=== PATIENT | female | born 2000 | race American Indian/Alaskan Native ===

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

== ENCOUNTER 2019-02-01 09:40 | Inpatient (IN) | payer MEDICAID ==
[2019-02-01] MEDS ORDERED: LACTATED RINGERS 1,000 ML IV SCH (11:00)
--- NOTE | 2019-02-01 12:54 | Ultrasound Report ---
OBSTETRIC ULTRASOUND with biophysical profile INDICATION: Maternal gestational hypertension COMPARISON: No prior relevant imaging studies are available for comparison. TECHNIQUE: Transabdominal imaging was performed. FINDINGS: Single viable intrauterine is identified. lie: vertex. Heart rate: 143 bpm. bladder, diaphragm, heart, stomach, kidneys, spine, and included intracranial structures are un remarkable. The umbilical cord is seen with a loop in the region of the neck. measurements are as follows: Biparietal diameter 9.1 cm, 37 weeks 0 days Head circumference 33.1 cm, 37 weeks 5 days Abdominal circumference 32.6 cm, 36 weeks 3 days Femur length 7.4 cm, 37 weeks 6 days Estimated heart rate at this time is 6 pounds, 13 ounces. Amniotic fluid index is essentially 0cm, decreased. No placental abnormalities are seen. Cervix is c losed measuring 3 cm. CONCLUSION: 1. Single viable intrauterine currently in vertex position with estimated birthweight at this time of 6 pounds, 13 ounces.] 2. There is virtually no amniotic fluid. 3. There appears to be looping of the umbilical cord around the neck. ULTRASOUND BIOPHYSICAL PROFILE INDICATION: assessment, KARUNA. COMPARISON: None available. FINDINGS: breathing movement = 2 Gross body movement = 2 tone = 2 Qualitative amniotic fluid volume = 0 Total biophysical score = 6/8 Amniotic fluid index is 0 cm. Presentation is Cephalic. heart rate is 143 beats per minute. IMPRESSION: 1. biophysical profile = 6/8. Amniotic fluid index is essentially 0. Signer Name: Dennis Timmons MD Signed: 02/01/2019 12:49 PM Workstation Name: [id number]
[2019-02-01] MEDS ORDERED: BRETHINE IVP PRN (13:25)
[2019-02-01] MEDS ORDERED: XYLOCAINE 2% INFILTRATI ONE (13:25)
[2019-02-01] MEDS ORDERED: MINERAL OIL PO PRN (13:25)
[2019-02-01] MEDS ORDERED: CERVIDIL VG ONE (13:25)
[2019-02-01] MEDS ORDERED: BRETHINE SUB-Q PRN (13:25)
[2019-02-01] MEDS ORDERED: PITOCin/NS 30 UNIT/500ML 30 UNITS/500 ML BAG IV SCH (14:00)
[2019-02-01] MEDS ORDERED: PITOCin/NS 20 UNIT/1000ML DRIP 20 UNITS/1,000 ML BAG IV SCH (14:00)
[2019-02-01 14:13] LABS: Hematocrit 33.7 % (30.3-42.9); Mean Corpuscular HGB Conc 33 % (30-34); Mean Corpuscular Volume 85 fl (79-97); Platelet Count 225 K/mm3 (140-440); Red Blood Count 3.97 M/mm3 (3.65-5.03); Red Cell Distribution Width 15.4 % (13.2-15.2)
--- NOTE | 2019-02-01 14:53 | History and Physical Report ---
History of Present Illness Date of examination: 02/01/19 Date of admission: 02/01/19 13:11 Chief complaint: Contractions History of present illness: IUP@39weeks, presents complaining of contractions, variable decelerations noted by RN, BPP 09/28 (-2fluid), KARUNA 0, she denies ROM. +fm Past History : 1 Term Births: 0 Premature Births: 0 Living Children: 0 Para: 0 Mult. Births: 0 Prev : 0 Prev. attempt? 0 Aborta: 0 Elect. Ab: 0 Spont. 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 of genital herpes: no Partner hx. of genital herpes: no Rash, Viral, or Febrile illness since last LMP? no Varicella/Chicken Pox Status: Immunized TB Risk: no Genetic History Congenital Heart Defect: Mom: no Dad: no Kellie Disease: Mom: no Dad: no Thalassemia Mom: no Dad: no Neural Tube Defect Mom: no Dad: no Down's Syndrome Mom: no Dad: no Cheikh-Sachs Mom: no Dad: no Sickle Cell Disease/Trait Mom: no Dad: no Hemophilia Mom: no Dad: no Muscular Dystrophy Mom: no Dad: no Cystic Fibrosis Mom: no Dad: no [place] Chorea Mom: no Dad: no Mental Retardation Mom: no Dad: no Fragile X Mom: no Dad: no Other Genetic/Chromosomal Disorder Mom: no Dad: no Child w/other defect Mom: no Dad: no Enviromental Exposures Enviromental Exposures Reviewed Xray Exposure: no Medication, drug, or alcohol use since LMP: no Chemical/Other Exposure: no Exposure to Cat Liter: no Hx of Parvovirus (Fifth Disease): no Occupational Exposure to Children: none Active Medications (reviewed today): None Current Allergies (reviewed today): No known allergies Past History - Obstetrical History Expected Date of Delivery: 02/08/19 Actual Gestation: 39 Week(s) 0 Day(s) : 1 Medications and Allergies Allergies Allergy/AdvReac Type Severity Reaction Status Date / Time No Known Allergies Allergy Verified 06/04/18 12:38 Home Medications Medication Instructions Recorded Confirmed Last Taken Type Ondansetron [Zofran Odt] 4 mg PO Q8HR PRN #15 tab.rapdis 06/11/18 Unknown Rx 21/Iron Fu/Folic Acid 1 each PO DAILY #30 tablet 06/11/18 Unknown Rx [ Complete Caplet] Active Meds: Active Medications Ephedrine Sulfate (Ephedrine Sulfate) 10 mg IV Q2M PRN PRN Reason: Hypotension Lactated Ringer's (Lactated Ringers) 1,000 mls @ 150 mls/hr IV DIRECT NIALL Last Admin: 02/01/19 11:33 Dose: 150 mls/hr Documented by: Oxytocin/Sodium Chloride (Pitocin/Ns 20 Unit/1000ml Drip) 20 units in 1,000 mls @ 125 mls/hr IV DIRECT NIALL Oxytocin/Sodium Chloride (Pitocin/Ns 30 Unit/500ml) 30 units in 500 mls @ 1 mls/hr IV TITR NIALL; Protocol Lactated Ringer's (Lactated Ringers) 1,000 mls @ 125 mls/hr IV DIRECT NIALL Mineral Oil (Mineral Oil) 30 ml PO QHS PRN PRN Reason: Constipation Terbutaline Sulfate (Brethine) 0.25 mg SUB-Q ONCE PRN PRN Reason: Hyperstimulation/Hypertonicity Terbutaline Sulfate (Brethine) 0.25 mg IVP ONCE PRN PRN Reason: Hyperstimulation/Hypertonicity Review of Systems All systems: negative - Vital Signs Vital signs: Vital Signs Pulse BP 86 127/89 02/01/19 10:17 02/01/19 10:17 Temp Pulse Resp BP Pulse Ox 103 H 134/92 99 02/01/19 14:46 02/01/19 14:36 02/01/19 14:46 - Physical Exam Breasts: Positive: deferred Lungs: Positive: Normal air movement Abdomen: Positive: normal appearance. Negative: tenderness Genitourinary (Female): Positive: normal external genitalia, normal perenium Vulva: both: normal Uterus: Positive: enlarged. Negative: tender Extremities: Positive: normal - Obstetrical FHR: category 1 Uterine Contraction Monitor Mode: External Cervical Dilatation: 2 Cervical Effacement Percentage: 30 station: -2 Uterine Contraction Pattern: Irregular Results Result Diagrams: 02/01/19 13:52 Abnormal lab results 02/01/19 Range/Units 13:52 RDW 15.4 H (13.2-15.2) % All other labs normal. Ultrasound: report reviewed Assessment and Plan - Patient Problems (1) 39 weeks gestation of Current Visit: Yes Status: Acute (2) Oligohydramnios in third trimester Current Visit: Yes Status: Acute Qualifiers: Fetus number: single or unspecified fetus Qualified Code(s): O41.03X0 - Oligohydramnios, third trimester, not applicable or unspecified Plan to address problem: Will start cervidil for now. Plan of care explained, questions answered, she agrees with plan of care
[2019-02-01] MEDS ORDERED: STADOL IV PRN (15:40)
[2019-02-01 17:04] LABS: Alanine Aminotransferase 12 units/L (7-56); Uric Acid 4.3 mg/dL (3.5-7.6)
[2019-02-01] MEDS ORDERED: ZOFRAN IV ONE (20:38)
[2019-02-01 22:02] LABS: Bilirubin,Urine NEG (Negative); Blood,Urine SM (Negative); Color,Urine Yellow (Yellow); Mucus,Urine FEW /HPF; Protein,Urine <15 mg/dL mg/dL (Negative); RBC,Urine < 1.0 /HPF (0.0-6.0); Urobilinogen,Urine < 2.0 mg/dL (<2.0)
[2019-02-02] MEDS: LACTATED RINGERS 1,000 ML IV SCH ×3 (01:14→04:14)
--- NOTE | 2019-02-02 01:41 | Anesthesia Consultation ---
Anesthesia Consult and Med Hx Date of service: 02/02/19 - Airway Anesthetic Teeth Evaluation: Good - Pulmonary Exam CTA: Yes - Cardiac Exam Cardiac Exam: RRR - Pre-Operative Health Status ASA Pre-Surgery Classification: ASA2, Emergency Proposed Anesthetic Plan: Epidural - Pulmonary Hx Asthma: No COPD: No Hx Pneumonia: No - Cardiovascular System Hx Hypertension: No - Central Nervous System Hx Seizures: No Hx Psychiatric Problems: No - Endocrine Hx Renal Disease: No Hx End Stage Renal Disease: No Hx Hypothyroidism: No Hx Hyperthyroidism: No - Hematic Hx Anemia: No Hx Sickle Cell Disease: No - Other Systems Hx Alcohol Use: No
[2019-02-02] MEDS ORDERED: NARCAN 2 MG/2 ML IV PRN (01:42)
[2019-02-02] MEDS ORDERED: fentaNYL-BUPIV 2 MCG/ML-0.125% 200 MCG/100 ML BAG EPIDURAL SCH (02:00)
--- NOTE | 2019-02-02 04:00 | Progress Note ---
Assessment and Plan - Patient Problems (1) 39 weeks gestation of Current Visit: Yes Status: Acute (2) Oligohydramnios in third trimester Current Visit: Yes Status: Acute Qualifiers: Fetus number: single or unspecified fetus Qualified Code(s): O41.03X0 - Oligohydramnios, third trimester, not applicable or unspecified Plan to address problem: Close observation Continue present care Subjective - Subjective Date of service: 02/02/19 Principal diagnosis: IUP@39 wga, oligohydramnios Interval history: IUP@39weeks, presents complaining of contractions, variable decelerations noted by RN, BPP 09/28 (-2fluid), KARUNA 0, she denies ROM. +fm Past History : 1 Term Births: 0 Premature Births: 0 Living Children: 0 Para: 0 Mult. Births: 0 Prev : 0 Prev. attempt? 0 Aborta: 0 Elect. Ab: 0 Spont. 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 of genital herpes: no Partner hx. of genital herpes: no Rash, Viral, or Febrile illness since last LMP? no Varicella/Chicken Pox Status: Immunized TB Risk: no Genetic History Congenital Heart Defect: Mom: no Dad: no Kellie Disease: Mom: no Dad: no Thalassemia Mom: no Dad: no Neural Tube Defect Mom: no Dad: no Down's Syndrome Mom: no Dad: no Cheikh-Sachs Mom: no Dad: no Sickle Cell Disease/Trait Mom: no Dad: no Hemophilia Mom: no Dad: no Muscular Dystrophy Mom: no Dad: no Cystic Fibrosis Mom: no Dad: no Scott Chorea Mom: no Dad: no Mental Retardation Mom: no Dad: no Fragile X Mom: no Dad: no Other Genetic/Chromosomal Disorder Mom: no Dad: no Child w/other defect Mom: no Dad: no Enviromental Exposures Enviromental Exposures Reviewed Xray Exposure: no Medication, drug, or alcohol use since LMP: no Chemical/Other Exposure: no Exposure to Cat Liter: no Hx of Parvovirus (Fifth Disease): no Occupational Exposure to Children: none Active Medications (reviewed today): None Current Allergies (reviewed today): No known allergies Patient reports: no new complaints Objective - Vital Signs Vital Signs: Vital Signs - 12hr 02/01/19 02/01/19 02/01/19 16:22 17:08 17:25 Temperature Pulse Rate 94 H 108 H 103 H Respiratory Rate Blood Pressure 123/77 128/82 O2 Sat by Pulse 99 Oximetry 02/01/19 02/01/19 02/01/19 17:30 17:35 17:40 Temperature Pulse Rate 99 H 96 H 101 H Respiratory Rate Blood Pressure O2 Sat by Pulse 100 100 100 Oximetry 02/01/19 02/01/19 02/01/19 17:45 17:50 17:53 Temperature Pulse Rate 98 H 96 H 87 Respiratory Rate Blood Pressure 128/88 O2 Sat by Pulse 100 100 Oximetry 02/01/19 02/01/19 02/01/19 17:55 18:00 18:05 Temperature Pulse Rate 97 H 107 H 100 H Respiratory Rate Blood Pressure O2 Sat by Pulse 100 100 100 Oximetry 02/01/19 02/01/19 02/01/19 18:10 18:15 18:20 Temperature Pulse Rate 100 H 103 H 96 H Respiratory Rate Blood Pressure O2 Sat by Pulse 100 100 100 Oximetry 02/01/19 02/01/19 02/01/19 18:25 18:30 18:35 Temperature Pulse Rate 89 93 H 103 H Respiratory Rate Blood Pressure O2 Sat by Pulse 100 100 100 Oximetry 02/01/19 02/01/19 02/01/19 18:37 18:40 18:45 Temperature Pulse Rate 100 H 97 H 88 Respiratory Rate Blood Pressure 142/87 142/66 O2 Sat by Pulse 100 100 Oximetry 02/01/19 02/01/19 02/01/19 18:50 18:55 19:00 Temperature Pulse Rate 86 90 95 H Respiratory Rate Blood Pressure O2 Sat by Pulse 100 100 100 Oximetry 02/01/19 02/01/19 02/01/19 19:05 19:10 19:15 Temperature Pulse Rate 102 H 95 H 102 H Respiratory Rate Blood Pressure O2 Sat by Pulse 100 100 100 Oximetry 02/01/19 02/01/19 02/01/19 19:20 19:22 19:25 Temperature Pulse Rate 107 H 92 H 92 H Respiratory Rate Blood Pressure 139/81 O2 Sat by Pulse 98 100 Oximetry 02/01/19 02/01/19 02/01/19 19:30 19:35 19:40 Temperature Pulse Rate 83 91 H 89 Respiratory Rate Blood Pressure 136/80 O2 Sat by Pulse 100 99 98 Oximetry 02/01/19 02/01/19 02/01/19 19:45 19:50 19:55 Temperature Pulse Rate 94 H 80 86 Respiratory Rate Blood Pressure O2 Sat by Pulse 98 98 98 Oximetry 02/01/19 02/01/19 02/01/19 19:59 20:00 20:05 Temperature 98.8 F Pulse Rate 90 84 Respiratory 18 Rate Blood Pressure O2 Sat by Pulse 98 98 Oximetry 02/01/19 02/01/19 02/01/19 20:07 20:10 20:15 Temperature Pulse Rate 94 H 95 H 102 H Respiratory Rate Blood Pressure 120/75 O2 Sat by Pulse 98 99 Oximetry 02/01/19 02/01/19 02/01/19 20:20 20:25 20:30 Temperature Pulse Rate 99 H 94 H 95 H Respiratory Rate Blood Pressure O2 Sat by Pulse 98 99 98 Oximetry 02/01/19 02/01/19 02/01/19 20:35 20:40 20:45 Temperature Pulse Rate 99 H 99 H 94 H Respiratory Rate Blood Pressure O2 Sat by Pulse 99 99 98 Oximetry 02/01/19 02/01/19 02/01/19 20:50 20:52 20:55 Temperature Pulse Rate 92 H 91 H 99 H Respiratory Rate Blood Pressure 118/62 O2 Sat by Pulse 98 99 Oximetry 02/01/19 02/01/19 02/01/19 21:00 21:05 21:10 Temperature Pulse Rate 92 H 95 H 95 H Respiratory Rate Blood Pressure O2 Sat by Pulse 99 98 98 Oximetry 02/01/19 02/01/19 02/01/19 21:15 21:20 21:25 Temperature Pulse Rate 98 H 99 H 107 H Respiratory Rate Blood Pressure O2 Sat by Pulse 99 99 99 Oximetry 1002/01/19 02/01/19 21:36 21:39 21:41 Temperature Pulse Rate 108 H 100 H 94 H Respiratory Rate Blood Pressure 152/81 O2 Sat by Pulse 100 98 Oximetry 02/01/19 02/01/19 02/01/19 21:46 21:51 21:56 Temperature Pulse Rate 96 H 85 100 H Respiratory Rate Blood Pressure O2 Sat by Pulse 98 98 98 Oximetry 02/01/19 02/01/19 02/01/19 22:01 22:06 22:11 Temperature Pulse Rate 93 H 86 92 H Respiratory Rate Blood Pressure O2 Sat by Pulse 98 99 99 Oximetry 02/01/19 02/01/19 02/01/19 22:16 22:21 22:23 Temperature Pulse Rate 88 102 H 100 H Respiratory Rate Blood Pressure 150/66 O2 Sat by Pulse 99 100 Oximetry 02/01/19 02/01/19 02/01/19 22:26 22:31 22:36 Temperature Pulse Rate 91 H 96 H 86 Respiratory Rate Blood Pressure O2 Sat by Pulse 98 99 98 Oximetry 02/01/19 02/01/19 02/01/19 22:41 22:46 22:51 Temperature Pulse Rate 93 H 95 H 89 Respiratory Rate Blood Pressure O2 Sat by Pulse 98 99 98 Oximetry 02/01/19 02/01/19 02/01/19 22:56 23:01 23:06 Temperature Pulse Rate 89 111 H 111 H Respiratory Rate Blood Pressure O2 Sat by Pulse 98 99 99 Oximetry 02/01/19 02/01/19 02/01/19 23:11 23:16 23:21 Temperature Pulse Rate 93 H 98 H 95 H Respiratory Rate Blood Pressure O2 Sat by Pulse 98 97 99 Oximetry 02/01/19 02/01/19 02/01/19 23:25 23:26 23:31 Temperature Pulse Rate 100 H 102 H 102 H Respiratory Rate Blood Pressure 124/67 O2 Sat by Pulse 98 99 Oximetry 02/01/19 02/01/19 02/01/19 23:36 23:41 23:46 Temperature Pulse Rate 101 H 102 H 101 H Respiratory Rate Blood Pressure O2 Sat by Pulse 99 99 99 Oximetry 02/01/19 02/01/19 02/02/19 23:51 23:56 00:01 Temperature Pulse Rate 93 H 109 H 100 H Respiratory Rate Blood Pressure O2 Sat by Pulse 99 98 99 Oximetry 02/02/19 02/02/19 02/02/19 00:06 00:11 00:16 Temperature Pulse Rate 115 H 112 H 92 H Respiratory Rate Blood Pressure O2 Sat by Pulse 97 97 98 Oximetry 02/02/19 02/02/19 02/02/19 00:21 00:24 00:26 Temperature Pulse Rate 111 H 100 H 102 H Respiratory Rate Blood Pressure 124/71 O2 Sat by Pulse 97 99 Oximetry 02/02/19 02/02/19 02/02/19 00:31 00:36 00:41 Temperature Pulse Rate 102 H 88 100 H Respiratory Rate Blood Pressure O2 Sat by Pulse 99 97 98 Oximetry 02/02/19 02/02/19 02/02/19 00:43 00:48 00:52 Temperature Pulse Rate 33 L 112 H Respiratory Rate Blood Pressure O2 Sat by Pulse 88 86 90 Oximetry 02/02/19 02/02/19 02/02/19 00:54 00:57 01:02 Temperature Pulse Rate 97 H 96 H Respiratory Rate Blood Pressure O2 Sat by Pulse 88 98 100 Oximetry 02/02/19 02/02/19 02/02/19 01:07 01:08 01:12 Temperature Pulse Rate 100 H 102 H 111 H Respiratory Rate Blood Pressure O2 Sat by Pulse 97 92 95 Oximetry 02/02/19 02/02/19 02/02/19 01:15 01:17 01:22 Temperature Pulse Rate 110 H 113 H 111 H Respiratory Rate Blood Pressure O2 Sat by Pulse 94 95 96 Oximetry 02/02/19 02/02/19 02/02/19 01:24 01:27 01:32 Temperature Pulse Rate 111 H 111 H 116 H Respiratory Rate Blood Pressure 128/77 O2 Sat by Pulse 93 96 96 Oximetry 02/02/19 02/02/19 02/02/19 01:37 01:42 01:47 Temperature Pulse Rate 113 H 110 H 121 H Respiratory Rate Blood Pressure O2 Sat by Pulse 97 97 98 Oximetry 02/02/19 02/02/19 02/02/19 01:52 01:56 01:57 Temperature Pulse Rate 108 H 111 H 110 H Respiratory Rate Blood Pressure 129/85 O2 Sat by Pulse 97 98 Oximetry 02/02/19 02/02/19 02/02/19 01:59 02:02 02:05 Temperature Pulse Rate 118 H 119 H 114 H Respiratory Rate Blood Pressure 132/88 137/90 134/79 O2 Sat by Pulse 98 Oximetry 02/02/19 02/02/19 02/02/19 02:07 02:08 02:11 Temperature Pulse Rate 111 H 116 H 107 H Respiratory Rate Blood Pressure 132/86 131/82 O2 Sat by Pulse 98 Oximetry 02/02/19 02/02/19 02/02/19 02:12 02:14 02:15 Temperature 98.2 F Pulse Rate 105 H 113 H Respiratory 18 Rate Blood Pressure 131/78 O2 Sat by Pulse 98 Oximetry 02/02/19 02/02/19 02/02/19 02:17 02:20 02:22 Temperature Pulse Rate 103 H 96 H 98 H Respiratory Rate Blood Pressure 135/82 137/86 O2 Sat by Pulse 98 96 Oximetry 02/02/19 02/02/19 02/02/19 02:27 02:31 02:32 Temperature Pulse Rate 89 97 H 92 H Respiratory Rate Blood Pressure 131/84 129/83 O2 Sat by Pulse 96 98 Oximetry 02/02/19 02/02/19 02/02/19 02:37 02:41 02:42 Temperature Pulse Rate 93 H 96 H 96 H Respiratory Rate Blood Pressure 132/84 O2 Sat by Pulse 98 97 Oximetry 02/02/19 02/02/19 02/02/19 02:47 02:52 02:57 Temperature Pulse Rate 100 H 103 H 100 H Respiratory Rate Blood Pressure O2 Sat by Pulse 99 99 98 Oximetry 02/02/19 02/02/19 02/02/19 03:02 03:07 03:12 Temperature Pulse Rate 107 H 95 H 94 H Respiratory Rate Blood Pressure O2 Sat by Pulse 98 98 98 Oximetry 02/02/19 02/02/19 02/02/19 03:17 03:22 03:27 Temperature Pulse Rate 95 H 98 H 95 H Respiratory Rate Blood Pressure 132/96 O2 Sat by Pulse 98 99 98 Oximetry 02/02/19 02/02/19 02/02/19 03:32 03:37 03:38 Temperature Pulse Rate 96 H 104 H Respiratory Rate Blood Pressure 129/77 O2 Sat by Pulse 100 99 Oximetry 02/02/19 02/02/19 02/02/19 03:42 03:47 03:52 Temperature Pulse Rate 96 H 100 H 97 H Respiratory Rate Blood Pressure 138/90 O2 Sat by Pulse 100 100 100 Oximetry 02/02/19 03:57 Temperature Pulse Rate 101 H Respiratory Rate Blood Pressure O2 Sat by Pulse 100 Oximetry - Exam Cardiovascular: Regular rate Lungs: Normal air movement Abdomen: Present: soft. Absent: tenderness Vulva: both: normal Uterus: Present: fundal height above umbilicus. Absent: tenderness FHR: category 2 FHR comments: ISE and IUPC placed w/o difficulty, scant clear fluid noted in IUPC Cervical Dilatation: 5 Cervical Effacement Percentage: 60 ( cervidil removed 0115 by RN) station: -1 Uterine Contraction Frequency (min): 4 Uterine Contraction Pattern: Regular Extremities: normal - Labs Labs: Abnormal Labs 02/01/19 02/01/19 13:52 15:47 RDW 15.4 H Creatinine 0.5 L Lactate Dehydrogenase 191 H Laboratory Results - last 24 hr 02/01/19 02/01/19 02/01/19 13:52 13:52 15:47 WBC 6.7 RBC 3.97 Hgb 11.0 Hct 33.7 MCV 85 MCH 28 MCHC 33 RDW 15.4 H Plt Count 225 Creatinine 0.5 L Estimated GFR > 60 Uric Acid 4.3 AST 14 ALT 12 Lactate Dehydrogenase 191 H Urine Color Urine Turbidity Urine pH Ur Specific [place] Urine Protein Urine Glucose (UA) Urine Ketones Urine Blood Urine Nitrite Urine Bilirubin Urine Urobilinogen Ur Leukocyte Esterase Urine WBC (Auto) Urine RBC (Auto) U Epithel Cells (Auto) Urine Mucus Blood Type O POSITIVE Antibody Screen Negative 02/01/19 21:40 WBC RBC Hgb Hct MCV MCH MCHC RDW Plt Count Creatinine Estimated GFR Uric Acid AST ALT Lactate Dehydrogenase Urine Color Yellow Urine Turbidity Slightly-cloudy Urine pH 7.0 Ur Specific [place] 1.016 Urine Protein <15 mg/dl Urine Glucose (UA) Neg Urine Ketones 20 Urine Blood Sm Urine Nitrite Neg Urine Bilirubin Neg Urine Urobilinogen < 2.0 Ur Leukocyte Esterase Sm Urine WBC (Auto) 1.0 Urine RBC (Auto) < 1.0 U Epithel Cells (Auto) 10.0 Urine Mucus Few Blood Type Antibody Screen
[2019-02-02] MEDS ORDERED: NACL 0.9% 1000 ML 1,000 ML ONE (04:20)
--- NOTE | 2019-02-02 07:23 | Progress Note ---
Assessment and Plan - Patient Problems (1) 39 weeks gestation of Current Visit: Yes Status: Acute Plan to address problem: Overall reassuring fht's. Continue amnioinfusion, O2, now on extreme right side with knee in stirrup. Findings and plan of care discussed with patient, she voiced understanding (2) Oligohydramnios in third trimester Current Visit: Yes Status: Acute Qualifiers: Fetus number: single or unspecified fetus Qualified Code(s): O41.03X0 - Oligohydramnios, third trimester, not applicable or unspecified Subjective - Subjective Date of service: 02/02/19 Principal diagnosis: IUP@39 wga, oligohydramnios Interval history: IUP@39weeks, presents complaining of contractions, variable decelerations noted by RN, BPP 09/28 (-2fluid), KARUNA 0, she denies ROM. +fm Past History : 1 Term Births: 0 Premature Births: 0 Living Children: 0 Para: 0 Mult. Births: 0 Prev : 0 Prev. attempt? 0 Aborta: 0 Elect. Ab: 0 Spont. 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 of genital herpes: no Partner hx. of genital herpes: no Rash, Viral, or Febrile illness since last LMP? no Varicella/Chicken Pox Status: Immunized TB Risk: no Genetic History Congenital Heart Defect: Mom: no Dad: no Kellie Disease: Mom: no Dad: no Thalassemia Mom: no Dad: no Neural Tube Defect Mom: no Dad: no Down's Syndrome Mom: no Dad: no Cheikh-Sachs Mom: no Dad: no Sickle Cell Disease/Trait Mom: no Dad: no Hemophilia Mom: no Dad: no Muscular Dystrophy Mom: no Dad: no Cystic Fibrosis Mom: no Dad: no [place] Chorea Mom: no Dad: no Mental Retardation Mom: no Dad: no Fragile X Mom: no Dad: no Other Genetic/Chromosomal Disorder Mom: no Dad: no Child w/other defect Mom: no Dad: no Enviromental Exposures Enviromental Exposures Reviewed Xray Exposure: no Medication, drug, or alcohol use since LMP: no Chemical/Other Exposure: no Exposure to Cat Liter: no Hx of Parvovirus (Fifth Disease): no Occupational Exposure to Children: none Active Medications (reviewed today): None Current Allergies (reviewed today): No known allergies Patient reports: no new complaints Objective - Vital Signs Vital Signs: Vital Signs - 12hr 02/01/19 02/01/19 02/01/19 19:20 19:22 19:25 Temperature Pulse Rate 107 H 92 H 92 H Respiratory Rate Blood Pressure 139/81 O2 Sat by Pulse 98 100 Oximetry 02/01/19 02/01/19 02/01/19 19:30 19:35 19:40 Temperature Pulse Rate 83 91 H 89 Respiratory Rate Blood Pressure 136/80 O2 Sat by Pulse 100 99 98 Oximetry 02/01/19 02/01/19 02/01/19 19:45 19:50 19:55 Temperature Pulse Rate 94 H 80 86 Respiratory Rate Blood Pressure O2 Sat by Pulse 98 98 98 Oximetry 02/01/19 02/01/19 02/01/19 19:59 20:00 20:05 Temperature 98.8 F Pulse Rate 90 84 Respiratory 18 Rate Blood Pressure O2 Sat by Pulse 98 98 Oximetry 02/01/19 02/01/19 02/01/19 20:07 20:10 20:15 Temperature Pulse Rate 94 H 95 H 102 H Respiratory Rate Blood Pressure 120/75 O2 Sat by Pulse 98 99 Oximetry 02/01/19 02/01/19 02/01/19 20:20 20:25 20:30 Temperature Pulse Rate 99 H 94 H 95 H Respiratory Rate Blood Pressure O2 Sat by Pulse 98 99 98 Oximetry 02/01/19 02/01/19 02/01/19 20:35 20:40 20:45 Temperature Pulse Rate 99 H 99 H 94 H Respiratory Rate Blood Pressure O2 Sat by Pulse 99 99 98 Oximetry 02/01/19 02/01/19 02/01/19 20:50 20:52 20:55 Temperature Pulse Rate 92 H 91 H 99 H Respiratory Rate Blood Pressure 118/62 O2 Sat by Pulse 98 99 Oximetry 02/01/19 02/01/19 02/01/19 21:00 21:05 21:10 Temperature Pulse Rate 92 H 95 H 95 H Respiratory Rate Blood Pressure O2 Sat by Pulse 99 98 98 Oximetry 02/01/19 02/01/19 02/01/19 21:15 21:20 21:25 Temperature Pulse Rate 98 H 99 H 107 H Respiratory Rate Blood Pressure O2 Sat by Pulse 99 99 99 Oximetry 02/01/19 02/01/19 02/01/19 21:36 21:39 21:41 Temperature Pulse Rate 108 H 100 H 94 H Respiratory Rate Blood Pressure 152/81 O2 Sat by Pulse 100 98 Oximetry 02/01/19 02/01/19 02/01/19 21:46 21:51 21:56 Temperature Pulse Rate 96 H 85 100 H Respiratory Rate Blood Pressure O2 Sat by Pulse 98 98 98 Oximetry 02/01/19 02/01/19 02/01/19 22:01 22:06 22:11 Temperature Pulse Rate 93 H 86 92 H Respiratory Rate Blood Pressure O2 Sat by Pulse 98 99 99 Oximetry 02/01/19 02/01/19 02/01/19 22:16 22:21 22:23 Temperature Pulse Rate 88 102 H 100 H Respiratory Rate Blood Pressure 150/66 O2 Sat by Pulse 99 100 Oximetry 02/01/19 02/01/19 02/01/19 22:26 22:31 22:36 Temperature Pulse Rate 91 H 96 H 86 Respiratory Rate Blood Pressure O2 Sat by Pulse 98 99 98 Oximetry 02/01/19 02/01/19 02/01/19 22:41 22:46 22:51 Temperature Pulse Rate 93 H 95 H 89 Respiratory Rate Blood Pressure O2 Sat by Pulse 98 99 98 Oximetry 02/01/19 02/01/19 02/01/19 22:56 23:01 23:06 Temperature Pulse Rate 89 111 H 111 H Respiratory Rate Blood Pressure O2 Sat by Pulse 98 99 99 Oximetry 02/01/19 02/01/19 02/01/19 23:11 23:16 23:21 Temperature Pulse Rate 93 H 98 H 95 H Respiratory Rate Blood Pressure O2 Sat by Pulse 98 97 99 Oximetry 02/01/19 02/01/19 02/01/19 23:25 23:26 23:31 Temperature Pulse Rate 100 H 102 H 102 H Respiratory Rate Blood Pressure 124/67 O2 Sat by Pulse 98 99 Oximetry 02/01/19 02/01/19 02/01/19 23:36 23:41 23:46 Temperature Pulse Rate 101 H 102 H 101 H Respiratory Rate Blood Pressure O2 Sat by Pulse 99 99 99 Oximetry 02/01/19 02/01/19 02/02/19 23:51 23:56 00:01 Temperature Pulse Rate 93 H 109 H 100 H Respiratory Rate Blood Pressure O2 Sat by Pulse 99 98 99 Oximetry 02/02/19 02/02/19 02/02/19 00:06 00:11 00:16 Temperature Pulse Rate 115 H 112 H 92 H Respiratory Rate Blood Pressure O2 Sat by Pulse 97 97 98 Oximetry 02/02/19 02/02/19 02/02/19 00:21 00:24 00:26 Temperature Pulse Rate 111 H 100 H 102 H Respiratory Rate Blood Pressure 124/71 O2 Sat by Pulse 97 99 Oximetry 02/02/19 02/02/19 02/02/19 00:31 00:36 00:41 Temperature Pulse Rate 102 H 88 100 H Respiratory Rate Blood Pressure O2 Sat by Pulse 99 97 98 Oximetry 02/02/19 02/02/19 02/02/19 00:43 00:48 00:52 Temperature Pulse Rate 33 L 112 H Respiratory Rate Blood Pressure O2 Sat by Pulse 88 86 90 Oximetry 02/02/19 02/02/19 02/02/19 00:54 00:57 01:02 Temperature Pulse Rate 97 H 96 H Respiratory Rate Blood Pressure O2 Sat by Pulse 88 98 100 Oximetry 02/02/19 02/02/19 02/02/19 01:07 01:08 01:12 Temperature Pulse Rate 100 H 102 H 111 H Respiratory Rate Blood Pressure O2 Sat by Pulse 97 92 95 Oximetry 02/02/19 02/02/19 02/02/19 01:15 01:17 01:22 Temperature Pulse Rate 110 H 113 H 111 H Respiratory Rate Blood Pressure O2 Sat by Pulse 94 95 96 Oximetry 02/02/19 02/02/19 02/02/19 01:24 01:27 01:32 Temperature Pulse Rate 111 H 111 H 116 H Respiratory Rate Blood Pressure 128/77 O2 Sat by Pulse 93 96 96 Oximetry 02/02/19 02/02/19 02/02/19 01:37 01:42 01:47 Temperature Pulse Rate 113 H 110 H 121 H Respiratory Rate Blood Pressure O2 Sat by Pulse 97 97 98 Oximetry 02/02/19 02/02/19 02/02/19 01:52 01:56 01:57 Temperature Pulse Rate 108 H 111 H 110 H Respiratory Rate Blood Pressure 129/85 O2 Sat by Pulse 97 98 Oximetry 02/02/19 02/02/19 02/02/19 01:59 02:02 02:05 Temperature Pulse Rate 118 H 119 H 114 H Respiratory Rate Blood Pressure 132/88 137/90 134/79 O2 Sat by Pulse 98 Oximetry 02/02/19 02/02/19 02/02/19 02:07 02:08 02:11 Temperature Pulse Rate 111 H 116 H 107 H Respiratory Rate Blood Pressure 132/86 131/82 O2 Sat by Pulse 98 Oximetry 02/02/19 02/02/19 02/02/19 02:12 02:14 02:15 Temperature 98.2 F Pulse Rate 105 H 113 H Respiratory 18 Rate Blood Pressure 131/78 O2 Sat by Pulse 98 Oximetry 02/02/19 02/02/19 02/02/19 02:17 02:20 02:22 Temperature Pulse Rate 103 H 96 H 98 H Respiratory Rate Blood Pressure 135/82 137/86 O2 Sat by Pulse 98 96 Oximetry 02/02/19 02/02/19 02/02/19 02:27 02:31 02:32 Temperature Pulse Rate 89 97 H 92 H Respiratory Rate Blood Pressure 131/84 129/83 O2 Sat by Pulse 96 98 Oximetry 02/02/19 02/02/19 02/02/19 02:37 02:41 02:42 Temperature Pulse Rate 93 H 96 H 96 H Respiratory Rate Blood Pressure 132/84 O2 Sat by Pulse 98 97 Oximetry 02/02/19 02/02/19 02/02/19 02:47 02:52 02:57 Temperature Pulse Rate 100 H 103 H 100 H Respiratory Rate Blood Pressure O2 Sat by Pulse 99 99 98 Oximetry 02/02/19 02/02/19 02/02/19 03:02 03:07 03:12 Temperature Pulse Rate 107 H 95 H 94 H Respiratory Rate Blood Pressure O2 Sat by Pulse 98 98 98 Oximetry 02/02/19 02/02/19 02/02/19 03:17 03:22 03:27 Temperature Pulse Rate 95 H 98 H 95 H Respiratory Rate Blood Pressure 132/96 O2 Sat by Pulse 98 99 98 Oximetry 02/02/19 02/02/19 02/02/19 03:32 03:37 03:38 Temperature Pulse Rate 96 H 104 H Respiratory Rate Blood Pressure 129/77 O2 Sat by Pulse 100 99 Oximetry 02/02/19 02/02/19 02/02/19 03:42 03:47 03:52 Temperature Pulse Rate 96 H 100 H 97 H Respiratory Rate Blood Pressure 138/90 O2 Sat by Pulse 100 100 100 Oximetry 02/02/19 02/02/19 02/02/19 03:57 04:02 04:07 Temperature Pulse Rate 101 H 91 H 82 Respiratory Rate Blood Pressure O2 Sat by Pulse 100 100 100 Oximetry 02/02/19 02/02/19 02/02/19 04:12 04:17 04:21 Temperature Pulse Rate 110 H 100 H 97 H Respiratory Rate Blood Pressure 133/85 O2 Sat by Pulse 100 100 Oximetry 02/02/19 02/02/19 02/02/19 04:22 04:27 04:32 Temperature Pulse Rate 91 H 96 H 94 H Respiratory Rate Blood Pressure O2 Sat by Pulse 100 100 100 Oximetry 02/02/19 02/02/19 02/02/19 04:37 04:42 04:47 Temperature Pulse Rate 93 H 92 H 93 H Respiratory Rate Blood Pressure O2 Sat by Pulse 100 100 100 Oximetry 02/02/19 02/02/19 02/02/19 04:51 04:52 04:57 Temperature Pulse Rate 95 H 91 H 94 H Respiratory Rate Blood Pressure 132/81 O2 Sat by Pulse 100 100 Oximetry 02/02/19 02/02/19 02/02/19 05:02 05:07 05:12 Temperature Pulse Rate 97 H 95 H 98 H Respiratory Rate Blood Pressure O2 Sat by Pulse 100 100 100 Oximetry 02/02/19 02/02/19 02/02/19 05:17 05:21 05:22 Temperature Pulse Rate 104 H 98 H 93 H Respiratory Rate Blood Pressure 125/79 O2 Sat by Pulse 100 100 Oximetry 02/02/19 02/02/19 02/02/19 05:27 05:32 05:37 Temperature Pulse Rate 99 H 94 H 102 H Respiratory Rate Blood Pressure O2 Sat by Pulse 100 100 100 Oximetry 02/02/19 02/02/19 02/02/19 05:42 05:47 05:52 Temperature Pulse Rate 103 H 98 H 103 H Respiratory Rate Blood Pressure 136/84 O2 Sat by Pulse 100 100 99 Oximetry 02/02/19 02/02/19 02/02/19 05:57 06:02 06:07 Temperature Pulse Rate 100 H 104 H 109 H Respiratory Rate Blood Pressure O2 Sat by Pulse 100 100 100 Oximetry 02/02/19 02/02/19 02/02/19 06:12 06:17 06:22 Temperature Pulse Rate 108 H 103 H 108 H Respiratory Rate Blood Pressure 136/89 O2 Sat by Pulse 100 100 100 Oximetry 02/02/19 02/02/19 02/02/19 06:27 06:32 06:37 Temperature Pulse Rate 99 H 98 H 96 H Respiratory Rate Blood Pressure O2 Sat by Pulse 100 100 100 Oximetry 02/02/19 02/02/19 02/02/19 06:42 06:47 06:52 Temperature Pulse Rate 97 H 96 H 101 H Respiratory Rate Blood Pressure 138/87 O2 Sat by Pulse 100 100 100 Oximetry 02/02/19 02/02/19 02/02/19 06:57 07:02 07:07 Temperature Pulse Rate 100 H 100 H 101 H Respiratory Rate Blood Pressure O2 Sat by Pulse 100 100 100 Oximetry 02/02/19 07:12 Temperature Pulse Rate 105 H Respiratory Rate Blood Pressure O2 Sat by Pulse 100 Oximetry - Exam Breasts: deferred Lungs: Normal air movement Abdomen: Absent: tenderness Vulva: both: normal Uterus: Present: fundal height below umbilicus. Absent: tenderness FHR: category 2 (good variability, +acceleration with scalp stimulation) Cervical Dilatation: 7 Cervical Effacement Percentage: 60 station: -1 Uterine Contraction Frequency (min): 3-4 Uterine Contraction Pattern: Regular Extremities: normal - Labs Labs: Abnormal Labs 02/01/19 02/01/19 13:52 15:47 RDW 15.4 H Creatinine 0.5 L Lactate Dehydrogenase 191 H Laboratory Results - last 24 hr 02/01/19 02/01/19 02/01/19 13:52 13:52 15:47 WBC 6.7 RBC 3.97 Hgb 11.0 Hct 33.7 MCV 85 MCH 28 MCHC 33 RDW 15.4 H Plt Count 225 Creatinine 0.5 L Estimated GFR > 60 Uric Acid 4.3 AST 14 ALT 12 Lactate Dehydrogenase 191 H Urine Color Urine Turbidity Urine pH Ur Specific [place] Urine Protein Urine Glucose (UA) Urine Ketones Urine Blood Urine Nitrite Urine Bilirubin Urine Urobilinogen Ur Leukocyte Esterase Urine WBC (Auto) Urine RBC (Auto) U Epithel Cells (Auto) Urine Mucus Blood Type O POSITIVE Antibody Screen Negative 02/01/19 21:40 WBC RBC Hgb Hct MCV MCH MCHC RDW Plt Count Creatinine Estimated GFR Uric Acid AST ALT Lactate Dehydrogenase Urine Color Yellow Urine Turbidity Slightly-cloudy Urine pH 7.0 Ur Specific [place] 1.016 Urine Protein <15 mg/dl Urine Glucose (UA) Neg Urine Ketones 20 Urine Blood Sm Urine Nitrite Neg Urine Bilirubin Neg Urine Urobilinogen < 2.0 Ur Leukocyte Esterase Sm Urine WBC (Auto) 1.0 Urine RBC (Auto) < 1.0 U Epithel Cells (Auto) 10.0 Urine Mucus Few Blood Type Antibody Screen
--- NOTE | 2019-02-02 08:51 | Progress Note ---
Assessment and Plan - Patient Problems (1) 39 weeks gestation of Current Visit: Yes Status: Acute Plan to address problem: Anticipate vaginal delivery (2) Oligohydramnios in third trimester Current Visit: Yes Status: Acute Qualifiers: Fetus number: single or unspecified fetus Qualified Code(s): O41.03X0 - Oligohydramnios, third trimester, not applicable or unspecified Subjective - Subjective Date of service: 02/02/19 Principal diagnosis: IUP@39 wga, oligohydramnios Interval history: IUP@39weeks, presents complaining of contractions, variable decelerations noted by RN, BPP 09/28 (-2fluid), KARUNA 0, she denies ROM. +fm Past History : 1 Term Births: 0 Premature Births: 0 Living Children: 0 Para: 0 Mult. Births: 0 Prev : 0 Prev. attempt? 0 Aborta: 0 Elect. Ab: 0 Spont. 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 of genital herpes: no Partner hx. of genital herpes: no Rash, Viral, or Febrile illness since last LMP? no Varicella/Chicken Pox Status: Immunized TB Risk: no Genetic History Congenital Heart Defect: Mom: no Dad: no Kellie Disease: Mom: no Dad: no Thalassemia Mom: no Dad: no Neural Tube Defect Mom: no Dad: no Down's Syndrome Mom: no Dad: no Cheikh-Sachs Mom: no Dad: no Sickle Cell Disease/Trait Mom: no Dad: no Hemophilia Mom: no Dad: no Muscular Dystrophy Mom: no Dad: no Cystic Fibrosis Mom: no Dad: no Isaiah Chorea Mom: no Dad: no Mental Retardation Mom: no Dad: no Fragile X Mom: no Dad: no Other Genetic/Chromosomal Disorder Mom: no Dad: no Child w/other defect Mom: no Dad: no Enviromental Exposures Enviromental Exposures Reviewed Xray Exposure: no Medication, drug, or alcohol use since LMP: no Chemical/Other Exposure: no Exposure to Cat Liter: no Hx of Parvovirus (Fifth Disease): no Occupational Exposure to Children: none Active Medications (reviewed today): None Current Allergies (reviewed today): No known allergies Patient reports: contractions (vaginal pain), no new complaints Objective - Vital Signs Vital Signs: Vital Signs - 12hr 02/01/19 02/01/19 02/01/19 20:50 20:52 20:55 Temperature Pulse Rate 92 H 91 H 99 H Respiratory Rate Blood Pressure 118/62 O2 Sat by Pulse 98 99 Oximetry 02/01/19 02/01/19 02/01/19 21:00 21:05 21:10 Temperature Pulse Rate 92 H 95 H 95 H Respiratory Rate Blood Pressure O2 Sat by Pulse 99 98 98 Oximetry 02/01/19 02/01/19 02/01/19 21:15 21:20 21:25 Temperature Pulse Rate 98 H 99 H 107 H Respiratory Rate Blood Pressure O2 Sat by Pulse 99 99 99 Oximetry 02/01/19 02/01/19 02/01/19 21:36 21:39 21:41 Temperature Pulse Rate 108 H 100 H 94 H Respiratory Rate Blood Pressure 152/81 O2 Sat by Pulse 100 98 Oximetry 02/01/19 02/01/19 02/01/19 21:46 21:51 21:56 Temperature Pulse Rate 96 H 85 100 H Respiratory Rate Blood Pressure O2 Sat by Pulse 98 98 98 Oximetry 02/01/19 02/01/19 02/01/19 22:01 22:06 22:11 Temperature Pulse Rate 93 H 86 92 H Respiratory Rate Blood Pressure O2 Sat by Pulse 98 99 99 Oximetry 02/01/19 02/01/19 02/01/19 22:16 22:21 22:23 Temperature Pulse Rate 88 102 H 100 H Respiratory Rate Blood Pressure 150/66 O2 Sat by Pulse 99 100 Oximetry 02/01/19 02/01/19 02/01/19 22:26 22:31 22:36 Temperature Pulse Rate 91 H 96 H 86 Respiratory Rate Blood Pressure O2 Sat by Pulse 98 99 98 Oximetry 02/01/19 02/01/19 02/01/19 22:41 22:46 22:51 Temperature Pulse Rate 93 H 95 H 89 Respiratory Rate Blood Pressure O2 Sat by Pulse 98 99 98 Oximetry 02/01/19 02/01/19 02/01/19 22:56 23:01 23:06 Temperature Pulse Rate 89 111 H 111 H Respiratory Rate Blood Pressure O2 Sat by Pulse 98 99 99 Oximetry 02/01/19 02/01/19 02/01/19 23:11 23:16 23:21 Temperature Pulse Rate 93 H 98 H 95 H Respiratory Rate Blood Pressure O2 Sat by Pulse 98 97 99 Oximetry 02/01/19 02/01/19 02/01/19 23:25 23:26 23:31 Temperature Pulse Rate 100 H 102 H 102 H Respiratory Rate Blood Pressure 124/67 O2 Sat by Pulse 98 99 Oximetry 02/01/19 02/01/19 02/01/19 23:36 23:41 23:46 Temperature Pulse Rate 101 H 102 H 101 H Respiratory Rate Blood Pressure O2 Sat by Pulse 99 99 99 Oximetry 02/01/19 02/01/19 02/02/19 23:51 23:56 00:01 Temperature Pulse Rate 93 H 109 H 100 H Respiratory Rate Blood Pressure O2 Sat by Pulse 99 98 99 Oximetry 02/02/19 02/02/19 02/02/19 00:06 00:11 00:16 Temperature Pulse Rate 115 H 112 H 92 H Respiratory Rate Blood Pressure O2 Sat by Pulse 97 97 98 Oximetry 02/02/19 02/02/19 02/02/19 00:21 00:24 00:26 Temperature Pulse Rate 111 H 100 H 102 H Respiratory Rate Blood Pressure 124/71 O2 Sat by Pulse 97 99 Oximetry 02/02/19 02/02/19 02/02/19 00:31 00:36 00:41 Temperature Pulse Rate 102 H 88 100 H Respiratory Rate Blood Pressure O2 Sat by Pulse 99 97 98 Oximetry 02/02/19 02/02/19 02/02/19 00:43 00:48 00:52 Temperature Pulse Rate 33 L 112 H Respiratory Rate Blood Pressure O2 Sat by Pulse 88 86 90 Oximetry 02/02/19 02/02/19 02/02/19 00:54 00:57 01:02 Temperature Pulse Rate 97 H 96 H Respiratory Rate Blood Pressure O2 Sat by Pulse 88 98 100 Oximetry 02/02/19 02/02/19 02/02/19 01:07 01:08 01:12 Temperature Pulse Rate 100 H 102 H 111 H Respiratory Rate Blood Pressure O2 Sat by Pulse 97 92 95 Oximetry 02/02/19 02/02/19 02/02/19 01:15 01:17 01:22 Temperature Pulse Rate 110 H 113 H 111 H Respiratory Rate Blood Pressure O2 Sat by Pulse 94 95 96 Oximetry 02/02/19 02/02/19 02/02/19 01:24 01:27 01:32 Temperature Pulse Rate 111 H 111 H 116 H Respiratory Rate Blood Pressure 128/77 O2 Sat by Pulse 93 96 96 Oximetry 02/02/19 02/02/19 02/02/19 01:37 01:42 01:47 Temperature Pulse Rate 113 H 110 H 121 H Respiratory Rate Blood Pressure O2 Sat by Pulse 97 97 98 Oximetry 02/02/19 02/02/19 02/02/19 01:52 01:56 01:57 Temperature Pulse Rate 108 H 111 H 110 H Respiratory Rate Blood Pressure 129/85 O2 Sat by Pulse 97 98 Oximetry 02/02/19 02/02/19 02/02/19 01:59 02:02 02:05 Temperature Pulse Rate 118 H 119 H 114 H Respiratory Rate Blood Pressure 132/88 137/90 134/79 O2 Sat by Pulse 98 Oximetry 02/02/19 02/02/19 02/02/19 02:07 02:08 02:11 Temperature Pulse Rate 111 H 116 H 107 H Respiratory Rate Blood Pressure 132/86 131/82 O2 Sat by Pulse 98 Oximetry 02/02/19 02/02/19 02/02/19 02:12 02:14 02:15 Temperature 98.2 F Pulse Rate 105 H 113 H Respiratory 18 Rate Blood Pressure 131/78 O2 Sat by Pulse 98 Oximetry 02/02/19 02/02/19 02/02/19 02:17 02:20 02:22 Temperature Pulse Rate 103 H 96 H 98 H Respiratory Rate Blood Pressure 135/82 137/86 O2 Sat by Pulse 98 96 Oximetry 02/02/19 02/02/19 02/02/19 02:27 02:31 02:32 Temperature Pulse Rate 89 97 H 92 H Respiratory Rate Blood Pressure 131/84 129/83 O2 Sat by Pulse 96 98 Oximetry 02/02/19 02/02/19 02/02/19 02:37 02:41 02:42 Temperature Pulse Rate 93 H 96 H 96 H Respiratory Rate Blood Pressure 132/84 O2 Sat by Pulse 98 97 Oximetry 02/02/19 02/02/19 02/02/19 02:47 02:52 02:57 Temperature Pulse Rate 100 H 103 H 100 H Respiratory Rate Blood Pressure O2 Sat by Pulse 99 99 98 Oximetry 02/02/19 02/02/19 02/02/19 03:02 03:07 03:12 Temperature Pulse Rate 107 H 95 H 94 H Respiratory Rate Blood Pressure O2 Sat by Pulse 98 98 98 Oximetry 02/02/19 02/02/19 02/02/19 03:17 03:22 03:27 Temperature Pulse Rate 95 H 98 H 95 H Respiratory Rate Blood Pressure 132/96 O2 Sat by Pulse 98 99 98 Oximetry 02/02/19 02/02/19 02/02/19 03:32 03:37 03:38 Temperature Pulse Rate 96 H 104 H Respiratory Rate Blood Pressure 129/77 O2 Sat by Pulse 100 99 Oximetry 02/02/19 02/02/19 02/02/19 03:42 03:47 03:52 Temperature Pulse Rate 96 H 100 H 97 H Respiratory Rate Blood Pressure 138/90 O2 Sat by Pulse 100 100 100 Oximetry 02/02/19 02/02/19 02/02/19 03:57 04:02 04:07 Temperature Pulse Rate 101 H 91 H 82 Respiratory Rate Blood Pressure O2 Sat by Pulse 100 100 100 Oximetry 02/02/19 02/02/19 02/02/19 04:12 04:17 04:21 Temperature Pulse Rate 110 H 100 H 97 H Respiratory Rate Blood Pressure 133/85 O2 Sat by Pulse 100 100 Oximetry 02/02/19 02/02/19 02/02/19 04:22 04:27 04:32 Temperature Pulse Rate 91 H 96 H 94 H Respiratory Rate Blood Pressure O2 Sat by Pulse 100 100 100 Oximetry 02/02/19 02/02/19 02/02/19 04:37 04:42 04:47 Temperature Pulse Rate 93 H 92 H 93 H Respiratory Rate Blood Pressure O2 Sat by Pulse 100 100 100 Oximetry 02/02/19 02/02/19 02/02/19 04:51 04:52 04:57 Temperature Pulse Rate 95 H 91 H 94 H Respiratory Rate Blood Pressure 132/81 O2 Sat by Pulse 100 100 Oximetry 02/02/19 02/02/1902/02/19 05:02 05:07 05:12 Temperature Pulse Rate 97 H 95 H 98 H Respiratory Rate Blood Pressure O2 Sat by Pulse 100 100 100 Oximetry 02/02/19 02/02/19 02/02/19 05:17 05:21 05:22 Temperature Pulse Rate 104 H 98 H 93 H Respiratory Rate Blood Pressure 125/79 O2 Sat by Pulse 100 100 Oximetry 02/02/19 02/02/19 02/02/19 05:27 05:32 05:37 Temperature Pulse Rate 99 H 94 H 102 H Respiratory Rate Blood Pressure O2 Sat by Pulse 100 100 100 Oximetry 02/02/19 02/02/19 02/02/19 05:42 05:47 05:52 Temperature Pulse Rate 103 H 98 H 103 H Respiratory Rate Blood Pressure 136/84 O2 Sat by Pulse 100 100 99 Oximetry 02/02/19 02/02/19 02/02/19 05:57 06:02 06:07 Temperature Pulse Rate 100 H 104 H 109 H Respiratory Rate Blood Pressure O2 Sat by Pulse 100 100 100 Oximetry 02/02/19 02/02/19 02/02/19 06:12 06:17 06:22 Temperature Pulse Rate 108 H 103 H 108 H Respiratory Rate Blood Pressure 136/89 O2 Sat by Pulse 100 100 100 Oximetry 02/02/19 02/02/19 02/02/19 06:27 06:32 06:37 Temperature Pulse Rate 99 H 98 H 96 H Respiratory Rate Blood Pressure O2 Sat by Pulse 100 100 100 Oximetry 02/02/19 02/02/19 02/02/19 06:42 06:47 06:52 Temperature Pulse Rate 97 H 96 H 101 H Respiratory Rate Blood Pressure 138/87 O2 Sat by Pulse 100 100 100 Oximetry 02/02/19 02/02/19 02/02/19 06:57 07:02 07:07 Temperature Pulse Rate 100 H 100 H 101 H Respiratory Rate Blood Pressure O2 Sat by Pulse 100 100 100 Oximetry 02/02/19 02/02/19 02/02/19 07:12 07:17 07:22 Temperature Pulse Rate 105 H 112 H 113 H Respiratory Rate Blood Pressure 132/78 O2 Sat by Pulse 100 100 96 Oximetry 02/02/19 02/02/19 02/02/19 07:27 07:32 07:37 Temperature Pulse Rate 98 H 96 H 93 H Respiratory Rate Blood Pressure O2 Sat by Pulse 100 100 100 Oximetry 02/02/19 02/02/19 02/02/19 07:42 07:47 07:51 Temperature Pulse Rate 94 H 97 H 99 H Respiratory Rate Blood Pressure 135/78 O2 Sat by Pulse 100 100 Oximetry 02/02/19 02/02/19 02/02/19 07:52 07:57 08:02 Temperature Pulse Rate 96 H 95 H 101 H Respiratory Rate Blood Pressure O2 Sat by Pulse 100 100 100 Oximetry 02/02/19 02/02/19 02/02/19 08:07 08:12 08:17 Temperature Pulse Rate 97 H 99 H 100 H Respiratory Rate Blood Pressure O2 Sat by Pulse 100 100 100 Oximetry 02/02/19 02/02/19 02/02/19 08:22 08:27 08:32 Temperature Pulse Rate 116 H 108 H 113 H Respiratory Rate Blood Pressure 142/76 O2 Sat by Pulse 100 100 100 Oximetry 02/02/19 02/02/19 02/02/19 08:37 08:42 08:47 Temperature Pulse Rate 108 H 116 H 137 H Respiratory Rate Blood Pressure O2 Sat by Pulse 100 100 100 Oximetry - Exam Breasts: deferred Cardiovascular: Regular rate Lungs: Normal air movement Vulva: both: normal FHR: category 2 (good variability, +spontaneously accelerations) Uterine Contraction Monitor Mode: Internal Cervical Dilatation: 10 Cervical Effacement Percentage: 100 station: +2 Uterine Contraction Pattern: Regular - Labs Labs: Abnormal Labs 02/01/19 02/01/19 13:52 15:47 RDW 15.4 H Creatinine 0.5 L Lactate Dehydrogenase 191 H Laboratory Results - last 24 hr 02/01/19 02/01/19 02/01/19 13:52 13:52 15:47 WBC 6.7 RBC 3.97 Hgb 11.0 Hct 33.7 MCV 85 MCH 28 MCHC 33 RDW 15.4 H Plt Count 225 Creatinine 0.5 L Estimated GFR > 60 Uric Acid 4.3 AST 14 ALT 12 Lactate Dehydrogenase 191 H Urine Color Urine Turbidity Urine pH Ur Specific [place] Urine Protein Urine Glucose (UA) Urine Ketones Urine Blood Urine Nitrite Urine Bilirubin Urine Urobilinogen Ur Leukocyte Esterase Urine WBC (Auto) Urine RBC (Auto) U Epithel Cells (Auto) Urine Mucus Blood Type O POSITIVE Antibody Screen Negative 10/12/19 21:40 WBC RBC Hgb Hct MCV MCH MCHC RDW Plt Count Creatinine Estimated GFR Uric Acid AST ALT Lactate Dehydrogenase Urine Color Yellow Urine Turbidity Slightly-cloudy Urine pH 7.0 Ur Specific [place] 1.016 Urine Protein <15 mg/dl Urine Glucose (UA) Neg Urine Ketones 20 Urine Blood Sm Urine Nitrite Neg Urine Bilirubin Neg Urine Urobilinogen < 2.0 Ur Leukocyte Esterase Sm Urine WBC (Auto) 1.0 Urine RBC (Auto) < 1.0 U Epithel Cells (Auto) 10.0 Urine Mucus Few Blood Type Antibody Screen
--- NOTE | 2019-02-02 09:23 | Procedure Note ---
OB Delivery Note - Delivery Date of Delivery: 02/02/19 Surgeon: SELVIN SAWYER Estimated blood loss: 200cc - Vaginal Delivery presentation: vertex Delivery position: OA Intrapartum events: hydramnios, mult.variable deceleratio Delivery induction: cervidil Delivery monitor: external FHT, external uterine, internal FHT, internal uterine Route of delivery: Delivery placenta: spontaneous (intact) Delivery cord: nuchal cord (x1 released over the baby's head) Episiotomy: none Delivery laceration: 1st degree (repaired with 3-0vicryl x1 stitch) Delivery repair: vicryl Anesthesia: epidural - Infant A at 1 minute: 6 at 5 minutes: 9 Infant Gender: Female (6lb 5oz)
[2019-02-02] MEDS ORDERED: BOOSTRIX IM ONE (09:26)
[2019-02-02] MEDS ORDERED: AFLURIA QUAD 2019-2020 (3YR UP) IM ONE (09:26)
[2019-02-02] MEDS ORDERED: TYLENOL PO ONE (09:28)
[2019-02-02] MEDS ORDERED: MAGNESIUM SULFATE 4GM/100ML 4 GM/100 ML BAG IV ONE (09:53)
[2019-02-02] MEDS ORDERED: CALCIUM GLUCONATE IV PRN (09:53)
[2019-02-02] MEDS ORDERED: LACTATED RINGERS 1,000 ML IV SCH (10:00)
[2019-02-02] MEDS ORDERED: MAGNESIUM SULFATE 40GM/1000ML 40 GM/1,000 ML BAG IV SCH (10:00)
[2019-02-02 11:18] LABS: Hematocrit 30.9 % (30.3-42.9); Mean Corpuscular HGB Conc 33 % (30-34); Mean Corpuscular Volume 85 fl (79-97); Platelet Count 199 K/mm3 (140-440); Red Blood Count 3.64 M/mm3 (3.65-5.03); Red Cell Distribution Width 15.5 % (13.2-15.2)
[2019-02-02 11:41] LABS: Alanine Aminotransferase 8 units/L (7-56); Uric Acid 4.7 mg/dL (3.5-7.6)
--- NOTE | 2019-02-02 15:34 | Post Anesthesia Evaluation ---
- Post Anesthesia Evaluation Patient Participated: Yes Airway Patent: Yes Stable Respiratory Function: Yes Nausea/Vomiting: No Temp > 96.8F: Yes Pain Manageable: Yes Adequeate Hydration: Yes Anesthesia Complications: No Block Receding Appropriately: Yes Patient on Ventilator: No
[2019-02-02 18:50] LABS: Bacteria,Urine 1+ /HPF (Negative); Bilirubin,Urine NEG (Negative); Blood,Urine SM (Negative); Color,Urine Straw (Yellow); Mucus,Urine FEW /HPF; Protein,Urine <15 mg/dL mg/dL (Negative); Urobilinogen,Urine < 2.0 mg/dL (<2.0)
[2019-02-02] MEDS ORDERED: DULCOLAX PR PRN (21:43)
[2019-02-02] MEDS ORDERED: LANSINOH TP PRN (21:43)
[2019-02-02] MEDS ORDERED: SODIUM CHLORIDE FLUSH SYRINGE 10 ML IV PRN (21:43)
[2019-02-02] MEDS ORDERED: TUCKS PAD TP PRN (21:43)
[2019-02-02] MEDS ORDERED: BENADRYL PO PRN (21:43)
[2019-02-02] MEDS ORDERED: PHENERGAN PO PRN (21:43)
[2019-02-02] MEDS ORDERED: PHENERGAN PR PRN (21:43)
[2019-02-02] MEDS ORDERED: TYLENOL PO PRN (21:43)
[2019-02-02] MEDS ORDERED: MILK OF MAGNESIA PO PRN (21:43)
[2019-02-02] MEDS ORDERED: ZOFRAN IV PRN (21:43)
[2019-02-02] MEDS: IBUPROFEN PO SCH (22:03)
[2019-02-02] MEDS ORDERED: PITOCin/NS 20 UNIT/1000ML DRIP 20,000 MILLIUNITS/1,000 ML BAG IV ONE (23:59)
[2019-02-03] MEDS: IBUPROFEN PO SCH ×3 (04:45→22:36)
--- NOTE | 2019-02-03 06:33 | Progress Note ---
Assessment and Plan Pt resting No c/o voiced No c/o AVALOS, blurred vision, chest pain. MGSO4 due to be completed @ 0900 Consulted with DTRs 2+, minimal edema noted in LE FF below umb Lochia scant. Perineum intact Stable s/p vag del with elevated BP P: continue pathway Advance as tolerated Move to [facility] when mag is completed. - Patient Problems (1) Spontaneous vaginal delivery Onset Date: ~02/02/19 Current Visit: Yes Status: Acute Plan to address problem: Routine pathway Will transfer to [facility] when MGSO4 is completed. (2) Elevated blood pressure Onset Date: ~02/02/19 Current Visit: Yes Status: Acute Plan to address problem: elevated BPs appreciated prior to and after delivery PreE labs wnl MGSO4 infusing @ 2gm/hr Next mag level due @ 0800 Will get H&H @ that time. Subjective - Subjective Date of service: 02/03/19 (no c/o voiced) Principal diagnosis: S/P ; elevated BP MGSO4 X 24hr Completed @ 0900 Patient reports: voiding normally (galicia cath draining clear yellow urine), pain well controlled : doing well Objective - Vital Signs Latest vital signs: Vital Signs Temp Pulse Resp BP BP Pulse Ox 02/03/19 06:24 88 97 02/03/19 06:19 86 97 02/03/19 06:14 88 97 02/03/19 06:09 90 97 02/03/19 06:04 86 97 02/03/19 05:59 88 97 02/03/19 05:54 88 97 02/03/19 05:49 88 97 02/03/19 05:44 87 96 02/03/19 05:39 87 97 02/03/19 05:36 86 111/73 02/03/19 05:34 86 97 02/03/19 05:29 89 97 02/03/19 05:24 87 97 02/03/19 05:19 89 97 02/03/19 05:14 87 97 02/03/19 05:09 83 96 02/03/19 05:04 102 H 97 02/03/19 04:59 97 H 97 02/03/19 04:54 95 H 97 02/03/19 04:49 91 H 97 02/03/19 04:44 87 97 02/03/19 04:39 85 97 02/03/19 04:36 88 119/77 02/03/19 04:34 80 90 02/03/19 04:29 84 97 02/03/19 04:24 85 97 02/03/19 04:19 87 97 02/03/19 04:14 90 98 02/03/19 04:09 87 99 02/03/19 04:04 89 97 02/03/19 03:59 98 H 98 02/03/19 03:54 93 H 99 02/03/19 03:49 91 H 98 02/03/19 03:44 93 H 97 02/03/19 03:39 91 H 99 02/03/19 03:36 88 116/76 02/03/19 03:34 89 98 02/03/19 03:29 88 99 02/03/19 03:24 92 H 99 02/03/19 03:19 91 H 99 02/03/19 03:14 92 H 98 02/03/19 03:09 89 98 02/03/19 03:04 95 H 98 02/03/19 02:59 87 98 02/03/19 02:54 91 H 97 02/03/19 02:49 92 H 98 02/03/19 02:45 97.9 F 89 16 119/72 97 02/03/19 02:44 89 97 02/03/19 02:39 89 97 02/03/19 02:36 88 119/72 02/03/19 02:34 94 H 98 02/03/19 02:29 90 98 02/03/19 02:24 97 H 99 02/03/19 02:19 91 H 98 02/03/19 02:17 89 92 02/03/19 02:14 93 H 98 02/03/19 02:09 88 99 02/03/19 02:04 91 H 98 02/03/19 01:59 100 H 99 02/03/19 01:54 99 H 99 02/03/19 01:49 95 H 99 02/03/19 01:44 95 H 98 02/03/19 01:39 93 H 124/72 99 02/03/19 01:38 100 H 142/74 02/03/19 01:37 89 02/03/19 01:34 101 H 100 02/03/19 01:29 92 H 97 02/03/19 01:24 92 H 97 14/19 01:19 93 H 97 14/19 01:14 93 H 97 14/ 01:09 96 H 98 14 01:04 92 H 98 14/19 00:59 95 H 94 14/19 00:54 98 H 94 14/ 00:49 110 H 99 14/19 00:44 101 H 100 14/19 00:39 104 H 99 1419 00:36 101 H 129/82 14/19 00:34 101 H 99 1419 00:29 99 H 98 14 00:24 100 H 99 14 00:19 102 H 99 02/03/19 00:14 104 H 98 14 00:09 100 H 99 02/03/19 00:04 102 H 98 02/02/19 23:59 101 H 97 02/02/19 23:54 95 H 99 02/02/19 23:49 92 H 100 02/02/19 23:44 99 H 98 19 23:39 102 H 99 19 23:36 97 H 128/81 02/02/19 23:34 107 H 97 02/02/19 23:29 108 H 98 19 23:24 98 H 97 02/02/ 23:19 96 H 99 19 23:14 98 H 99 02/02/19 23:09 98 H 98 02/02/19 23:04 99 H 99 19 22:59 103 H 98 19 22:54 104 H 99 02/02/19 22:49 105 H 98 02/02/19 22:44 105 H 98 02/02/19 22:39 108 H 98 02/02/19 22:36 103 H 124/85 02/02/19 22:34 105 H 98 02/02/19 22:29 107 H 99 02/02/19 22:24 102 H 98 02/02/19 22:18 106 H 99 10/19 22:14 104 H 99 1013/19 22:08 104 H 99 10/19 22:03 109 H 16 99 19 21:58 103 H 98 10/13/19 21:53 111 H 99 02/02/19 21:49 108 H 100 02/02/19 21:43 111 H 100 02/02/19 21:38 105 H 98 02/02/19 21:36 103 H 121/73 02/02/19 21:33 106 H 99 02/02/19 21:28 108 H 99 02/02/19 21:23 102 H 98 02/02/19 21:20 104 H 123/78 02/02/19 21:18 102 H 100 02/02/19 21:13 103 H 99 02/02/19 21:08 107 H 99 02/02/19 21:03 114 H 99 02/02/19 20:58 97.9 F 101 H 18 121/78 99 19 20:53 112 H 98 02/02/19 20:48 104 H 99 19 20:43 109 H 99 02/02/19 20:39 104 H 130/84 19 20:38 105 H 98 02/02/19 20:33 109 H 99 19 20:28 103 H 99 02/02/19 20:23 109 H 99 02/02/19 20:18 107 H 99 02/02/19 20:13 111 H 99 19 20:08 108 H 98 19 20:03 107 H 99 19 19:58 111 H 100 19 19:53 109 H 98 02/02/19 19:49 109 H 99 02/02/19 19:44 101 H 99 19 19:39 114 H 98 19 19:36 100 H 121/78 02/02/19 19:34 101 H 97 02/02/19 19:29 103 H 98 02/02/19 19:24 102 H 99 02/02/19 19:19 101 H 99 02/02/19 19:14 109 H 98 02/02/19 19:09 110 H 97 02/02/19 19:04 104 H 98 02/02/19 18:59 106 H 98 02/02/19 18:54 100 H 98 13/19 18:48 100 H 98 02/02/19 18:44 102 H 98 02/02/19 18:39 101 H 98 10/13/19 18:36 99 H 120/76 10/13/19 18:33 99 H 98 10/13/19 18:29 99 H 98 10/13/19 18:24 97 H 98 10/13/19 18:18 102 H 99 10/13/19 18:14 108 H 99 10/13/19 18:09 100 H 99 10/13/19 18:03 100 H 99 10/13/19 17:59 110 H 97 10/13/19 17:54 104 H 98 10/13/19 17:48 106 H 99 10/13/19 17:43 101 H 98 10/13/19 17:39 107 H 98 10/13/19 17:36 101 H 130/86 10/13/19 17:33 103 H 98 10/13/19 17:28 103 H 98 10/13/19 17:23 104 H 99 10/13/19 17:18 105 H 99 10/13/19 17:13 105 H 98 10/13/19 17:08 103 H 99 10/13/19 17:04 106 H 98 10/13/19 16:58 107 H 99 10/13/19 16:53 100 H 99 10/13/19 16:49 107 H 99 10/13/19 16:44 107 H 99 10/13/19 16:39 112 H 99 10/13/19 16:36 106 H 138/84 10/13/19 16:33 110 H 98 10/13/19 16:28 107 H 99 10/13/19 16:23 105 H 98 10/13/19 16:18 111 H 98 10/13/19 16:13 110 H 99 10/13/19 16:08 104 H 98 10/13/19 16:03 104 H 99 10/13/19 15:58 106 H 98 10/13/19 15:53 107 H 99 10/13/19 15:48 109 H 99 10/13/19 15:43 108 H 98 10/13/19 15:38 107 H 99 10/13/19 15:36 100 H 137/90 10/13/19 15:33 107 H 99 10/13/19 15:28 106 H 99 10/13/19 15:23 110 H 98 10/13/19 15:18 107 H 98 10/13/19 15:13 106 H 97 10/13/19 15:08 108 H 98 02/02/19 15:03 108 H 97 02/02/19 14:58 112 H 98 02/02/19 14:53 107 H 97 02/02/19 14:48 110 H 97 02/02/19 14:43 107 H 96 02/02/19 14:38 108 H 97 02/02/19 14:36 110 H 127/78 02/02/19 14:33 115 H 98 02/02/19 14:28 114 H 98 02/02/19 14:23 120 H 98 02/02/19 14:18 118 H 98 02/02/19 14:13 123 H 98 02/02/19 14:08 127 H 99 02/02/19 14:03 113 H 98 02/02/19 13:58 118 H 99 02/02/19 13:53 109 H 98 02/02/19 13:48 114 H 98 02/02/19 13:43 116 H 98 02/02/19 13:38 115 H 98 02/02/19 13:36 112 H 131/77 02/02/19 13:33 114 H 97 02/02/19 13:28 110 H 97 02/02/19 13:23 115 H 98 02/02/19 13:18 116 H 97 02/02/19 13:13 118 H 97 02/02/19 13:08 116 H 98 02/02/19 13:03 116 H 97 02/02/19 12:58 114 H 98 02/02/19 12:53 108 H 98 02/02/19 12:48 113 H 98 02/02/19 12:43 122 H 98 02/02/19 12:38 115 H 98 02/02/19 12:36 115 H 133/89 93 02/02/19 12:33 116 H 98 02/02/19 12:28 117 H 98 02/02/19 12:23 114 H 97 02/02/19 12:18 115 H 98 02/02/19 12:13 121 H 97 02/02/19 12:08 115 H 98 02/02/19 12:03 110 H 98 02/02/19 11:58 112 H 98 02/02/19 11:53 108 H 97 02/02/19 11:48 104 H 97 02/02/19 11:43 104 H 97 02/02/19 11:38 104 H 97 02/02/19 11:34 103 H 131/81 02/02/19 11:33 104 H 97 02/02/19 11:28 101 H 97 02/02/19 11:23 102 H 98 02/02/19 11:18 103 H 98 02/02/19 11:13 106 H 98 02/02/19 11:08 97 H 97 02/02/19 11:06 102 H 143/89 02/02/19 11:03 106 H 98 02/02/19 10:58 111 H 97 02/02/19 10:53 107 H 98 02/02/19 10:48 117 H 98 02/02/19 10:47 112 H 134/75 02/02/19 10:43 118 H 98 02/02/19 10:42 116 H 124/75 02/02/19 10:38 119 H 127/78 96 02/02/19 10:35 99.1 F 14 02/02/19 10:33 110 H 94 02/02/19 10:29 116 H 94 02/02/19 10:28 116 H 97 02/02/19 10:27 113 H 130/61 02/02/19 10:23 116 H 143/61 97 02/02/19 10:18 112 H 98 02/02/19 10:17 105 H 140/76 02/02/19 10:13 108 H 98 02/02/19 10:12 109 H 141/75 02/02/19 10:08 112 H 98 02/02/19 10:07 117 H 144/77 02/02/19 10:03 116 H 145/76 02/02/19 10:02 122 H 99 02/02/19 09:58 122 H 135/79 02/02/19 09:57 113 H 99 02/02/19 09:53 125 H 142/96 02/02/19 09:52 117 H 99 02/02/19 09:48 115 H 143/88 02/02/19 09:47 117 H 97 02/02/19 09:42 125 H 98 02/02/19 09:38 127 H 143/86 02/02/19 09:37 124 H 97 02/02/19 09:33 116 H 155/71 02/02/19 09:32 99 H 97 02/02/19 09:28 110 H 197/89 02/02/19 09:27 116 H 100 02/02/19 09:23 129 H 165/99 02/02/19 09:22 101.1 F H 110 H 14 100 02/02/19 09:18 129 H 90 02/02/19 09:17 124 H 99 02/02/19 09:12 136 H 100 02/02/19 09:07 113 H 100 02/02/19 09:02 141 H 100 02/02/19 08:57 121 H 100 02/02/19 08:52 122 H 100 02/02/19 08:47 137 H 100 02/02/19 08:42 116 H 100 02/02/19 08:37 108 H 100 02/02/19 08:32 113 H 100 02/02/19 08:27 108 H 100 02/02/19 08:22 116 H 142/76 100 02/02/19 08:17 100 H 100 02/02/19 08:12 99 H 100 02/02/19 08:07 97 H 100 02/02/19 08:02 101 H 100 02/02/19 07:57 95 H 100 02/02/19 07:52 96 H 100 02/02/19 07:51 99 H 135/78 02/02/19 07:47 97 H 100 02/02/19 07:42 94 H 100 02/02/19 07:37 93 H 100 02/02/19 07:32 96 H 100 02/02/19 07:27 98 H 100 02/02/19 07:22 113 H 132/78 96 02/02/19 07:17 112 H 100 02/02/19 07:15 98.8 F 12 02/02/19 07:12 105 H 100 02/02/19 07:07 101 H 100 02/02/19 07:02 100 H 100 02/02/19 06:57 100 H 100 02/02/19 06:52 101 H 138/87 100 02/02/19 06:47 96 H 100 02/02/19 06:42 97 H 100 02/02/19 06:37 96 H 100 02/02/19 06:32 98 H 100 Intake and Output 02/02/19 02/02/19 02/03/19 14:59 22:59 06:59 Intake Total 1923 1456.667 Output Total 1800 3000 1150 Balance 124 -1543.333 -1150 Intake: IV 1923 1456.667 Lactated Ringers 1,000 ml 925 @ 125 mls/hr IV DIRECT NIALL Rx#:[id number] Lactated Ringers 1,000 ml 1000 @ 150 mls/hr IV DIRECT NIALL Rx#:[id number] MAGNESIUM SULFATE 40GM/ 456.667 1000ML 40 gm In 1,000 ml @ 2 GM/HR 50 mls/hr IV DIRECT NIALL Rx#:[id number] PITOCin/NS 20 UNIT/1000ML 999 DRIP 20 units In 1,000 ml @ 125 mls/hr IV DIRECT NIALL Rx#:[id number] Output: Urine 1800 3000 1150 Indwelling Catheter 1800 3000 1150 Other: Total, Output Amount 900 400 300 Estimated Blood Loss 200 - Exam Breasts: Present: normal Cardiovascular: Present: Regular rate Lungs: Present: Normal air movement Abdomen: Present: normal appearance, soft Uterus: Present: normal, fundal height below umbilicus Extremities: Present: normal, edema Deep Tendon Reflex Grade: Normal +2 Incision: Present: normal, dry, intact - Labs Labs: Abnormal lab results 02/02/19 02/02/19 02/02/19 Range/Units 10:27 10:27 20:35 WBC 13.4 H (4.5-11.0) K/mm3 RBC 3.64 L (3.65-5.03) M/mm3 Hgb 10.0 L (10.1-14.3) gm/dl RDW 15.5 H (13.2-15.2) % Creatinine 0.5 L (0.7-1.2) mg/dL Magnesium 4.80 H (1.7-2.3) mg/dL Lactate Dehydrogenase 215 H (91-180) units/L 02/02/19 02/03/19 Range/Units Unknown 02:15 WBC (4.5-11.0) K/mm3 RBC (3.65-5.03) M/mm3 Hgb (10.1-14.3) gm/dl RDW (13.2-15.2) % Creatinine (0.7-1.2) mg/dL Magnesium 3.10 H 5.30 H (1.7-2.3) mg/dL Lactate Dehydrogenase (91-180) units/L
[2019-02-03 10:12] LABS: Hematocrit 30.4 % (30.3-42.9)
[2019-02-04] MEDS: IBUPROFEN PO SCH (05:44)
--- NOTE | 2019-02-04 06:03 | Discharge Summary ---
Providers - Providers Date of Admission: 02/01/19 13:11 Date of discharge: 02/04/19 (pt agrees with d/c) Attending physician: SELVIN SAWYER 02/02/19 21:04 Consult to Waxing Machine Operator Helper [CONS] Routine Reason For Exam: SURESH nurse requests due to inverted nipples 02/02/19 21:43 Consult to Waxing Machine Operator Helper [CONS] Routine Reason For Exam: assistance with , SNS Hospitalization Reason for admission: active labor, IUP at term Delivery: Laceration: 1st degree Incision: normal, dry, intact Other procedures: none complications: none Discharge diagnosis: IUP at term delivered baby: female Hospital course: uncomplicated vaginal delivery PP elevated BP Received 24hr of MGSO4 Pt resting No c/o voiced FF below umb Lochia small perineum slight swelling intact H&H 02/19 No s/sx of anemia Doing well s/p vag del. P: d/c today with instructions RTO Sunday02-07-19 @ 0945 for BP check Pt instructed to call with any AVALOS, blurred vision, chest pain Condition at discharge: Good Disposition: DC- TO HOME OR SELFCARE - Discharge Diagnoses (1) Spontaneous vaginal delivery Status: Acute Comment: RTO 4 weeks PP care (2) Elevated blood pressure Status: Acute Comment: Appt Sunday02-07-19 @ 0945 for BP check Plan - Provider Discharge Summary Activity: routine, no sex for 6 weeks, no heavy lifting 4 weeks, no strenuous exercise Diet: routine Instructions: routine Additional instructions: [] Smoking cessation referral if applicable(refer to patient education folder for contact #) [] Refer to [facility] Booklet Call your doctor immediately for: * Fever > 100.5 * Heavy vaginal bleeding ( >1 pad per hour) * Severe persistent headache * Shortness of breath * Reddened, hot, painful area to leg or breast * Drainage or odor from incision. * Keep incision clean and dry at all times and follow doctor's instructions regarding bathing/showering - Follow up plan Follow up: NAZIA JACOBSEN [Other] - 7 Days MATILDE MACE CNM [Advanced Practice Nurse] - 02/07/19 9:45 am (Congratulations! Please call [phone] with any headache, not relieved with Tylenol, blurred vision, chest pain. Motrin/ibuprofen for pain/cramping. Please keep your appointment scheduled for Sunday02-07-19 at 9:45 in the [place] office, for blood pressure check. Call with any concerns.)
[2019-02-04 18:44] VITALS: BP 140/92
== END 2019-02-04 15:10 | disposition home or self-care (01) | DRG 775 ==
LOC: TRG 09:40 → LD 13:11 → OB 02-03 10:23
PROVIDERS: ADMIT Obstetrics & Gynecology; ATTEND Obstetrics & Gynecology
PROC: 10E0XZZ Delivery of Products of Conception, External Approach (ICD-10-PCS; principal; 2019-02-02)
PROC: 0HQ9XZZ Repair Perineum Skin, External Approach (ICD-10-PCS; 2019-02-02)
PROC: 3E0R3BZ Introduction of Anesthetic Agent into Spinal Canal, Percutaneous Approach (ICD-10-PCS; 2019-02-02)
PROC: 00HU33Z Insertion of Infusion Device into Spinal Canal, Percutaneous Approach (ICD-10-PCS; 2019-02-02)
PROC: 3E0P7VZ Introduction of Hormone into Female Reproductive, Via Natural or Artificial Opening (ICD-10-PCS; 2019-02-02)
PROC: 3E0234Z Introduction of Serum, Toxoid and Vaccine into Muscle, Percutaneous Approach (ICD-10-PCS; 2019-02-02)
DX: O76 Abnormality in fetal heart rate and rhythm complicating labor and delivery (principal); O69.81X0 Labor and delivery complicated by cord around neck, without compression, not applicable or unspecified; O41.03X0 Oligohydramnios, third trimester, not applicable or unspecified; O70.0 First degree perineal laceration during delivery; Z3A.39 39 weeks gestation of pregnancy; Z37.0 Single live birth; Z23 Encounter for immunization; Z80.3 Family history of malignant neoplasm of breast; Z79.899 Other long term (current) drug therapy
CPT/HCPCS: 36415; 59200; 76816; 76819; 81001; 82565; 83615; 83735; 84450; 84460; 84550; 85014; 85018; 85027; 86592; 86850; 86900; 86901; 90686; G0378; J0595; J2405; J2590; J3475; J7030; J7120